=== PATIENT | female | born 1930 | race Caucasian/White ===

== ENCOUNTER 2016-08-30 09:36 | Inpatient (IN) | payer OTHER, BC ==
--- NOTE | ~2016-08-30 | DS ---
Discharge Summary [address] [place]. [address] NAME: ARIANA FELIX : [birth year] STATUS : DIS IN PAT#: [id number] AGE: 86 ADM/REG DATE : 08/30/16 MR#: [id number] REPORT SERV DATE: 09/11/16 DICTATED BY: SAAD MONROY DATE: 09/06/16 REPORT STATUS : Draft TRANSCRIBED BY: JC DATE: 09/06/16 ADMISSION DATE: 08/30/2016 DISCHARGE DATE: 09/06/2016 CONSULTATION: 1. Orthopedic Surgery, Dr. Dameon Dick. 2. Gastroenterology, [facility]. OPERATION DURING THIS ADMISSION: 1. [place]/intertrochanteric femur fracture. 2. Open reduction and internal fixation of right intertrochanteric femur fracture. DISCHARGE DIAGNOSES: 1. Right intertrochanteric hip fracture, status post open reduction and internal fixation by Dr. Dick. 2. Normocytic anemia. Etiology multifactorial including anemia of chronic disease, postop anemia status post 3 units of blood transfusion. Hemoglobin remained stable. No evidence of acute gastrointestinal bleed. 3. History of dementia. 4. Gastroesophageal reflux. 5. Hypertension. 6. History of diverticulosis. 7. History of vaginal cancer. 8. History of coronary artery disease with severe two-vessel disease, not amenable to surgical intervention as well as stent, on dual anti-platelet therapy. 9. Code status. DNR. HISTORY OF PRESENT ILLNESS: For detailed HPI, please make reference to Dr. Nelly Shukla' dictation on 08/30/2016. Brief, this is an 86-year-old female with medical history of hypertension, coronary artery disease with severe two-vessel disease, not amenable to surgery, on PCI, on dual anti-platelet therapy, who presented to the hospital after a ground level fall at home. In the ER, the patient was noted to have severe right hip pain. X-ray of the pelvis confirms the presence of intertrochanteric fracture of the right femur. The patient was admitted to the Hospitalist Service for further management of right hip fracture. HOSPITAL COURSE: 1. Right hip fracture, status post open reduction and internal fixation of intertrochanteric fracture by Dr. Dick. The patient underwent surgical repair without any significant complication. The patient continued to tolerate physical therapy during this admission, also pain control being administered as needed. The patient is currently stable for discharge from orthopedic standpoint to SNF. The patient will be discharged on warfarin sliding scale for DVT prophylaxis per Orthopedics postop management of hip fracture based on the protocol. 2. Anemia. On presentation, the patient's hemoglobin was 7.9, postop the patient's hemoglobin trended down to 7.2, the patient received a total of three units of blood Discharge [address] [place]. [address] NAME: ARIANA FELIX : [birth year] STATUS : DIS IN PAT#: [id number] AGE: 86 ADM/REG DATE : 08/30/16 MR#: [id number] REPORT SERV DATE: 09/11/16 DICTATED BY: SAAD MONROY DATE: 09/06/16 REPORT STATUS : Draft TRANSCRIBED BY: JC DATE: 09/06/16 transfusion during the course of this admission without any significant complication. During the workup of anemia, the patient was found to have heme-positive stool. The patient is well known to the GI service. No evidence of melena, hematochezia, hematemesis during this admission. Etiology of the patient's anemia likely multifactorial including anemia of chronic disease, postop anemia. The patient's hemoglobin has remained stable within the range of 9.2 to 9.8 postop. Discontinue the anemia. After extensive deliberation with the GI team, orthopedic team, and the Hospitalist team, it was noted that the patient would require dual anti-platelet therapy for severe two-vessels coronary artery disease as well as warfarin for DVT prophylaxis postop. Hence, it was noted that the patient has not had any significant GI bleed, and hemoglobin has remained stable on this three medications. Hence, it was decided that the patient can continue three medications and we will monitor. The will continue warfarin at a level 2 scale as well as close INR monitoring twice a week at the intermediate. The patient was subsequently discharged to intermediate with a stable H and H at 9.8. 3. History of coronary artery disease with known severe three-vessel disease, not amenable to surgical intervention as well as PCI. The patient had no evidence of chest pain. No acute T wave changes throughout the course of this admission. The patient was continued on all cardiac medications as well as dual anti-platelet therapy throughout this admission. The patient was advised to continue Coreg, aspirin, and Plavix at the time of discharge. DISCHARGE MEDICATIONS: 1. Aspirin 81 mg p.o. daily. 2. Plavix 75 mg p.o. daily. 3. Vitamin D 2000 units tab p.o. daily. 4. Colace 100 mg p.o. at bedtime. 5. Ferrous sulfate 325 mg p.o. daily. 6. Imdur 30 mg p.o. daily. 7. Lyrica 75 mg p.o. b.i.d. 8. Senna 8.6 mg p.o. b.i.d. 9. Dulcolax 10 mg p.o. daily. 10.Anusol p.r.n. for hemorrhoids. 11.Ativan 0.5 mg p.o. at bedtime p.r.n. 12.Oxycodone 7.5/325 mg p.o. p.r.n. as needed for pain. 13.Warfarin level 2 sliding scale. DISCHARGE CONDITION: Stable. DISCHARGE ACTIVITY: As tolerated. DISCHARGE DISPOSITION: SNF. Greater than 35 minutes was used to prepare this patient's discharge, reconcile medication, advise the patient on discharge plans and followup. Discharge Summary [address] [address] NAME: ARIANA FELIX : [birth year] STATUS : DIS IN [facility]#: [id number] AGE: 86 ADM/REG DATE : 08/30/16 MR#: [id number] REPORT SERV DATE: 09/11/16 DICTATED BY: SAAD MONROY DATE: 09/06/16 REPORT STATUS : Draft TRANSCRIBED BY: JC DATE: 09/06/16 DICTATED BY: MD TENISHA Goodrich/JC Saad Monroy MD / [id number] CC: MD Dameon Goodrich M.D. W. Timothy Ballard M.D. Nelly Reina Joels, M.D. [facility]
--- NOTE | ~2016-08-30 | OP ---
Record Of Operation [facility] [address] [place]. [address] NAME: ARIANA FELIX : [birth year] STATUS : DIS IN PAT#: [id number] AGE: 86 ADM/REG DATE : 08/30/16 MR#: [id number] REPORT SERV DATE: 09/19/16 DICTATED BY: NAHID ESPINAL DATE: 08/30/16 REPORT STATUS : Draft TRANSCRIBED BY: MODLevon DATE: 08/30/16 DATE OF PROCEDURE: 08/30/2016 PREOPERATIVE DIAGNOSIS: Right intertrochanteric femur fracture. POSTOPERATIVE DIAGNOSIS: Right intertrochanteric femur fracture. OPERATION: [place]/intertrochanteric femur fracture. SIDE: Right. SIZE: See chart. ANIMATION PRODUCER: ESTIMATED BLOOD LOSS: About 100 mL. TOURNIQUET TIME: None. SPECIMENS: None. ANESTHESIA: See chart. PROCEDURE: The patient was taken to the preoperative holding area. The patient was appropriately identified, marked and the consent form carefully checked. The patient was taken then to the operating room and anesthetic was induced per the anesthesiologist. The patient was carefully positioned, carefully padded, prepped and draped on the fracture table. Prior to the surgical prep a closed reduction was obtained by closed method using fluoroscopic guidance. The patient was then prepped and draped in the usual sterile fashion. Using fluoroscopic guidance, a straight lateral incision was made. This was followed by electrocautery through the fat, the IT band and the vastus, staying towards the posterior portion of the lateral vastus to decrease the amount of muscle tissue that was cut through. Meticulous hemostasis was obtained with electrocautery. Lateral femoral cortex was exposed further with periosteal elevator and appropriate retraction. A guide was then used to place a guidewire basically in the center of the head on AP and lateral x-ray views. This was followed by depth gauge and then triple reamer. Lag screw was placed over the guidewire. The sliding plate was then placed and impacted and checked to be sure it was down snug. The plate was held with a plate clamp distally and reduction again checked. The screw holes in the plate were then filled with screws in the standard fashion with drill depth gauge and then self-tapping screw placement. The screws were then tightened by hand. Record Of Operation [facility] [address] [place] [address] NAME: ARIANA FELIX : [birth year] STATUS : DIS IN PAT#: [id number] AGE: 86 ADM/REG DATE : 08/30/16 MR#: [id number] REPORT SERV DATE: 09/19/16 DICTATED BY: NAHID ESPINAL DATE: 08/30/16 REPORT STATUS : Draft TRANSCRIBED BY: MODLevon DATE: 08/30/16 All traction was released and the compression screw placed and tightened. Again x-ray views were checked to ascertain reduction and screw length. The wound was then irrigated and closed with sutures in the vastus. A medium drain was placed distally anteriorly between the vastus and the IT band, then sutured on the IT band, 2-0 subcutaneous, and maco in the skin. Wound dressed sterilely. The patient was awakened and carefully transferred to the bed and transferred to the recovery room without incident. COUNTS: Correct. WTB/PASTORAL Karthikeyan Espinal M.D. / [id number] CC: Sabra Armendariz M.D.
--- NOTE | ~2016-08-30 | HP ---
History And Physical [address] [place]. [address] NAME: ARIANA FEILX : [birth year] STATUS : ADM IN [facility]#: [id number] AGE: 86 ADM/REG DATE : 08/30/16 MR#: [id number] REPORT SERV DATE: 08/30/16 DICTATED BY: NAHID ESPINAL DATE: 08/30/16 REPORT STATUS : Draft TRANSCRIBED BY: MODLevon DATE: 08/30/16 DATE OF ADMISSION: 08/30/2016 CHIEF COMPLAINT: Right hip pain. HISTORY OF PRESENT ILLNESS: 86-year-old female, family well known to me. She fell trying to walk with a walker. She is pretty much bed-bound, just bed to chair, but fell trying to get up and walk today. She denies pain or injury elsewhere. No associated loss of consciousness, shortness of breath, or chest pain. She unfortunately had a recent admission earlier this year for coronary artery disease, for which a CABG was recommended, but they had declined. ALLERGIES: SEE CHART. MEDICATIONS: See chart. PAST MEDICAL HISTORY: Asthma, chemo and radiation with implantable seeds due to a cancer sometime in the past, coronary artery disease as mentioned above, history of dementia per chart, anemia, and peripheral neuropathy. SOCIAL HISTORY: She is , her is here with her, also here with a niece. No known cigarettes, alcohol, or illicit drug use. Stays in a care facility. FAMILY HISTORY: No known anesthetic complications. She has a sister, and longevity is in her family. REVIEW OF SYSTEMS: As mentioned above, her recent coronary artery disease. No other fevers, chills, nausea, vomiting, diarrhea, shortness of breath, or other illnesses of late. PHYSICAL EXAMINATION: GENERAL: She is alert, oriented and very pleasant, able to recall recent events. HEENT: Atraumatic and normocephalic. NECK: Supple. CHEST: Symmetric and nontender. LUNGS: Per AA evaluation. CV: Regular. ABDOMEN: Soft. No mass. EXTREMITIES: Both upper extremities and left lower extremity without acute trauma. Right lower extremity is short and externally rotated. Compartment supple. Somewhat thready pulses, but skin is intact. X-RAY: Displaced right intertrochanteric femur fracture, severely displaced. ASSESSMENT: Right intertrochanteric femur fracture and recent coronary artery disease. History And Physical [address] [place]. [address] NAME: ARIANA FELIX : [birth year] STATUS : ADM IN PAT#: [id number] AGE: 86 ADM/REG DATE : 08/30/16 MR#: [id number] REPORT SERV DATE: 08/30/16 DICTATED BY: NAHID ESPINAL DATE: 08/30/16 REPORT STATUS : Draft TRANSCRIBED BY: MODL DATE: 08/30/16 PLAN: I had a lengthy discussion with the patient, with her , with her niece, and with Dr. Shukla, the hospitalist, and the anesthesiologist regarding the risks, benefits, etc., and all were in agreement with proceeding with ORIF of right intertrochanteric femur fracture. WTB/MODL Karthikeyan Espinal M.D. / [id number] CC: Sabra Armendariz M.D.
--- NOTE | ~2016-08-30 | IDS ---
Interim Discharge Summary [facility] [address] [place]. [address] NAME: ARIANA FELIX : [birth year] STATUS : ADM IN [facility]#: [id number] AGE: 86 ADM/REG DATE : 08/30/16 MR#: [id number] REPORT SERV DATE: 09/03/16 DICTATED BY: JR. VILLELA WILLIAM JOHN DATE: 09/03/16 REPORT STATUS : Draft TRANSCRIBED BY: JC DATE: 09/03/16 ADMISSION DATE: 08/30/2016 DISCHARGE DATE: WORKING DIAGNOSES: 1. Right intertrochanteric hip fracture status post open reduction and internal fixation by Dr. Dick. 2. Anemia of chronic disease. 3. History of vaginal cancer. 4. 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 5. DNAR status. OPERATIONS, PROCEDURES, AND TREATMENTS: Include: 1. Open reduction and internal fixation of right intertrochanteric femur fracture on 08/30/[address] Dick. 2. Chest x-ray done 08/30/2016, which showed no acute process. 3. Hip x-ray done 08/30/2016, which showed acute comminuted intertrochanteric fracture of the right femur. CURRENT MEDICATIONS: Please see list on the progress note. HOSPITAL COURSE: The patient was an 86-year-old female, custodial resident who was trying to walk using a walker, lost her balance, fell backwards and was found to have a right intertrochanteric hip fracture. For initial exam and laboratory, please see Dr. Shukla' dictated history and physical. The patient was admitted to the hospital for right inter-trochanteric hip fracture. She was seen in consultation by Dr. Dick and underwent open reduction and internal fixation. There were no significant events in this regard. As to her anemia, the patient did require a total of 3 units of packed red blood cells. She was transfused with two units packed red blood cells on 08/30/2016. Since that time, her hemoglobin had been in the 8.6 to 9.2 range. On 09/02/2016, she had a spurious reading of 7.4. She got one additional unit, however, followup hemoglobin was 10.1. This likely represents a laboratory error for the 7.4, reading. We will recheck a hemoglobin in the morning. The patient is being evaluated for rehabilitation but has not yet improved. When she is improved, the patient be discharged to rehabilitation. For today's lab and exam findings, please see the daily progress note. My partner will assume care in the morning. WJF/JC Dameon Nice Interim Discharge Summary [address] [address] NAME: ARIANA FELIX : [birth year] STATUS : ADM IN PAT#: [id number] AGE: 86 ADM/REG DATE : 08/30/16 MR#: [id number] REPORT SERV DATE: 09/03/16 DICTATED BY: JR. VILLELA WILLIAM JOHN DATE: 09/03/16 REPORT STATUS : Draft TRANSCRIBED BY: MODL DATE: 09/03/16 Jr Villela MD / [id number] CC: Dameon Villela Jr, MD William L. Horton, M.D.
--- NOTE | ~2016-08-30 | CN ---
Consultation Report [facility] [address] [place]. [address] NAME: ARIANA FELIX : [birth year] STATUS : ADM IN PAT#: [id number] AGE: 86 ADM/REG DATE : 08/30/16 MR#: [id number] REPORT SERV DATE: 09/06/16 DICTATED BY: JACLYN GILL DATE: 09/06/16 REPORT STATUS : Draft TRANSCRIBED BY: MODL DATE: 09/06/16 GI CONSULTATION DATE OF CONSULTATION: 09/06/2016 REASON FOR CONSULTATION: Evaluation and management of anemia with Hemoccult-positive stools. HISTORY OF PRESENT ILLNESS: Ms Felix is an 86-year-old female patient, who has been seen by Dr. Vishal Nielsen in the past, who presented to [facility] on 08/30/2016 with a chief complaint of a fall. She had fell on 08/30/2016 at the [facility] while trying to ambulate with a walker stating that she felt like she just lost her balance, and fell backwards. Pain in the right hip was immediate. She was brought into the hospital, was found to have an intertrochanteric fracture of the right hip for which she underwent ORIF of the right femur with Dr. Dick on 08/30/2016. Since that time, she was being evaluated by Rehab to which she was to be discharged today. She has a noted history of anemia when she was admitted on 08/30/2016. She had a hemoglobin is 7.9 during her hospitalization. She has required 3 units of packed red blood cells. She has a history of coronary artery disease, not amenable to CABG, and she has been on a regimen of Plavix and aspirin, and she has had Coumadin added to her regimen since her hip surgery. There was concern for occult GI bleeding. She had stools checked and returned positive; however, there has been no signs or symptoms of hematochezia or melena. Her stools are described as a dark color; however, she is on iron supplementation. She denies any nausea, vomiting, or abdominal pain. I have had a long discussion with her regarding endoscopic evaluation for GI to be able to perform any endoscopy on the patient. She would need to have her Plavix held for a total of five days as well as her Coumadin held with her INR to a level of 1.5 prior to any endoscopy. She herself states that she does not want to have any endoscopy performed. Her last procedure with Dr. Nielsen was in 2010 when he performed a flexible sigmoidoscopy. He found diffuse small angioectasias in the rectum that were nonbleeding and treated with thermal therapy. Her last full colonoscopy was in 2006 with sigmoid colon, descending colon, and diverticulosis as well as moderate nonbleeding internal hemorrhoids. She had an EGD in 2006 also showing normal duodenum and pylorus, nonerosive gastritis in the antrum, she had hiatal hernia and normal esophagus. PAST MEDICAL HISTORY: Positive for coronary artery disease, 2-vessel medical management only, hypertension, vaginal cancer status post radiation therapy, peripheral neuropathy, dementia, osteoarthritis, UTI, chronic anemia, chronic pain syndrome, diverticulosis, hemorrhoids, and colonic AVM. FAMILY HISTORY: Negative from a GI standpoint. SOCIAL HISTORY: Negative for alcohol, tobacco, or illicits. Prior to admission, was living in the [facility]. ALLERGIES: PENICILLIN, SULFA, AND CODEINE. Consultation Report [address] [place]. [address] NAME: ARIANA FELIX : [birth year] STATUS : ADM IN LOCATED WITHIN [facility]#: [id number] AGE: 86 ADM/REG DATE : 08/30/16 MR#: [id number] REPORT SERV DATE: 09/06/16 DICTATED BY: JACLYN GILL DATE: 09/06/16 REPORT STATUS : Draft TRANSCRIBED BY: JC DATE: 09/06/16 HOME MEDICATIONS: Aspirin, Plavix, Colace, Pepcid, ferrous sulfate, Imdur, Lyrica, oxycodone, Senna, multivitamin, Dyazide, vitamin D3, Lorazepam, and Milk of Magnesia. REVIEW OF SYSTEMS: A 10-point review of systems was obtained with pertinent positives being addressed in the history of present illness. PHYSICAL EXAMINATION: VITAL SIGNS: Temperature is 97. Pulse 68, respirations 18, and blood pressure 113/58. NEUROLOGIC: Reveals an elderly female resting in bed. She does awaken to name. She is oriented x3. She knows who she is, she knows she is at [facility]. She knows the year is 2016. GENERAL: She is cooperative. She is in no acute distress. HEAD, EARS, EYES, NOSE, AND THROAT: Anicteric. Pupils are equal, round, and reactive to light and accommodation. Normocephalic and atraumatic. NECK: No JVD. No palpable nodes. LUNGS: Diminished in the bases. Clear in the upper lobes. Normal respiratory effort exhibited. CARDIOVASCULAR SYSTEM: Regular rate and rhythm. ABDOMEN: Soft, nontender, and nondistended. Active bowel sounds in all four quadrants. No organomegaly appreciated. EXTREMITIES: No edema. She has a right hip and thigh dressing clean, dry, and intact. SKIN: Warm, dry, and intact. PERTINENT LABORATORY DATA: Sodium 137, potassium is 4.1, BUN is 25, and creatinine 1.03. White blood cell count 7.9, hemoglobin 9.8, hematocrit 30.6, and platelet count of 309. INR of 2.1. Last blood transfusion was given on 09/02/2016. ASSESSMENT AND PLAN: 1. Anemia, acute on chronic. She has had 3 units of packed red blood cells since admission. I feel this anemia is multifactorial. 2. Status post fall with right hip fracture status post ORIF, presently on Coumadin with an INR of 2.1. 3. Hemoccult-positive stools without any overt signs of bleeding. 4. Coronary artery disease, 2-vessel with medical management therapy only, Plavix and aspirin. 5. History of vaginal cancer status post radiation. 6. History of diverticulosis. 7. History of colonic arteriovenous malformation. PLAN: At present, with no overt signs or symptoms of bleeding. Hemoglobin is stable after 3 units which transfusion could have been needed secondary to surgical intervention. Admission hemoglobin of 7.9. I have discussed with the patient as no family is present EGD and colonoscopy. She does not want to proceed secondary to recent surgery. No active Consultation Report [address] [place]. [address] NAME: ARIANA FELIX : [birth year] STATUS : ADM IN LOCATED WITHIN [facility]#: [id number] AGE: 86 ADM/REG DATE : 08/30/16 MR#: [id number] REPORT SERV DATE: 09/06/16 DICTATED BY: JACLYN GILL DATE: 09/06/16 REPORT STATUS : Draft TRANSCRIBED BY: MODL DATE: 09/06/16 bleeding. If it is felt that EGD and colonoscopy are needed, the patient's Coumadin needs to be held until her INR is less than 1.5. Her Plavix will need to be held for a total of five days. If not amenable to being held, we would recommend the patient to be transferred to Rehab as previously planned. We will add Anusol for history of hemorrhoids as well as I would recommend continue her PPI twice a day. We will follow. KEYA/JC JULIA Mccain / [id number] CC: MD Dameon Goodrich M.D.
--- NOTE | ~2016-08-30 | HP ---
History And Physical [id number] [place]. [address] NAME: ARIANA FELIX : [birth year] STATUS : ADM IN [facility]#: [id number] AGE: 86 ADM/REG DATE : 08/30/16 MR#: [id number] REPORT SERV DATE: 08/30/16 DICTATED BY: CRIS SHUKLA DATE: 08/30/16 REPORT STATUS : Draft TRANSCRIBED BY: MODLevon DATE: 08/30/16 DATE OF ADMISSION: 08/30/2016 CHIEF COMPLAINT: Fall. HISTORY OF PRESENT ILLNESS: The patient is an 86-year-old white female, who is currently residing in a half-way. She fell today while trying to use a walker. She states she just lost her balance and fell backwards. She suddenly had pain to the right hip and was transferred to [facility], where she was found to have an intertrochanteric fracture of the right hip. She has had a fairly complex recent past medical history. She is currently residing in a half-way. She has become more frail and has had a decline. She no longer really ambulates very much. She needs maximal assistance. She frequently forgets to her call button at the half-way for assistance. She was in the hospital at [facility] in May with chest pain at that time. She underwent stress testing, which was positive. She then underwent a cardiac cath and she had severe two-vessel coronary artery disease. She was recommended to meet with CT Surgery for consideration of a CABG. After meeting with the CT surgeon and discussing things with the reactor kettle operator, they decided given her frail state and her immobility and decline over the last several months along with some dementia and her advanced age that it would not be recommended that she proceed with such a big surgery, instead they wanted to just pursue medical therapy. They made her DNR and they are more interested in comfort and palliation. She denies having any recent chest pain or shortness of breath. She has not had any recent fevers, and really has no other complaints today other than right hip pain. PAST MEDICAL HISTORY: 1. CAD, two-vessel, deemed only appropriate for medical therapy. 2. Hypertension. 3. Vaginal cancer. 4. Peripheral neuropathy. 5. Osteoarthritis. 6. Dementia. 7. Urinary tract infections. 8. Anemia. 9. Chronic pain. SOCIAL HISTORY: Nondrinker, nonsmoker. She lives in a half-way. Her is living. She attempts to ambulate with a walker, but she really ambulates very little. FAMILY HISTORY: Her parents lived to be very old and they of old age, but there is no history of premature coronary disease. HOME MEDICATIONS: Reviewed and attached. REVIEW OF SYSTEMS: Full 10-point review of systems obtained from the family, but not the patient as she was unable. She had pain medication. History And Physical [address] [address] NAME: ARIANA FELIX : [birth year] STATUS : ADM IN PAT#: [id number] AGE: 86 ADM/REG DATE : 08/30/16 MR#: [id number] REPORT SERV DATE: 08/30/16 DICTATED BY: CRIS SHUKLA DATE: 08/30/16 REPORT STATUS : Draft TRANSCRIBED BY: JC DATE: 08/30/16 PHYSICAL EXAMINATION: VITAL SIGNS: BP 111/29, temperature 97.6, pulse 69, respiratory rate 13, sats are 100%. GENERAL: Very frail appearing white female. HEENT: Normocephalic, atraumatic. Throat is clear. NECK: Supple. HEART: Regular rate and rhythm. LUNGS: Grossly clear anteriorly. ABDOMEN: Soft, nontender, nondistended. Normoactive bowel sounds are noted. EXTREMITIES: Warm and dry. She has no peripheral edema. 2+ pulses in the feet. I was unable to roll her over as she has tremendous pain in her right hip. LABORATORY AND X-RAY: CBC shows a hemoglobin and hematocrit of 7.9 and 24, white count 10.5, platelets 283. Coags are normal. Chemistry panel: Sodium 144, potassium 3.9, chloride 109, CO2 26, BUN and creatinine 24 and 1.28, glucose is 95. Troponin 0.02. Mag 1.7. Urinalysis is unrevealing. Chest x-ray shows no acute process. Pelvis film shows acute intertrochanteric fracture of the right femur. EKG shows sinus rhythm without any acute ST- T wave changes. ASSESSMENT/PLAN: 1. Right hip fracture per Dr. Dick. We will do open reduction and internal fixation mainly for palliation as I suspect with this type of fracture, she will be unable to roll in the bed or even sit up without significant pain. The family understands the risks since she has diagnosed two-vessel disease that was not intervened on and she was recommend to have CABG. 2. Coronary artery disease. Family desires no aggressive care for her coronary artery disease. We will continue her home medications. We will monitor her on tele. She is currently a DNR. We will proceed with surgery as without she will likely have no quality of life. 3. History of vaginal cancer. 4. 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 5. Dementia. 6. Anemia. She has had some component of chronic anemia, but this seems a bit worse than usual. We will Hemoccult her stools. She is already on her second unit of the blood now. Would like to tank her up before she goes to the OR given her coronary artery disease. Her last hemoglobin was 8.8 on 09/18/2014. We will do two units now, then we will repeat her hemoglobin and transfuse additionally if she is less than 8. We will Hemoccult her stool and go from there. 7. Deep venous thrombosis prophylaxis, subcu Lovenox. 8. Code status. The patient is full DNR. 9. Disposition pending above. DONALD/JC Cris Huang History And Physical [address] [address] NAME: ARIANA FELIX : [birth year] STATUS : ADM IN [facility]#: [id number] AGE: 86 ADM/REG DATE : 08/30/16 MR#: [id number] REPORT SERV DATE: 08/30/16 DICTATED BY: CRIS SHUKLA DATE: 08/30/16 REPORT STATUS : Draft TRANSCRIBED BY: JC DATE: 08/30/16 Sabra Shukla / [id number] CC: Sabra Armendariz M.D.
[~2016-08-30 09:36] MED LIST: CEFT5 PO; LYRICA150 MG PO; PERCOCET1 TA4 PO; TRAZODONE150 MG PO
[2016-08-30 09:46] LABS: BASOPHILS 0.2 %; BASOPHILS ABSOLUTE 0.02 10/3/uL (0.0-0.16); EOSINOPHILS ABSOLUTE 0.21 10/3/uL (0.0-0.53); ER CBC TAT 0 Hrs 04 MinsNP; HEMATOCRIT 24.3 % (36.0-48.0); HEMOGLOBIN 7.9 g/dL (12.0-16.0); IMMATURE GRANULOCYTES 0.3 %; IMMATURE GRANULOCYTES ABSOLUTE 0.03 10/3/uL (0.0-0.11); LYMPHOCYTES 9.7 %; LYMPHOCYTES ABSOLUTE 1.01 10/3/uL (0.67-4.30); MANUAL DIFF NO %; MEAN CORPUS HGB CONC 32.5 g/dL (32.0-36.0); MEAN CORPUSCULAR VOLUME 86.2 fL (80-100); MEAN PLATELET VOLUME 8.9 fL (9.2-13.0); MONOCYTES 4.6 %; MONOCYTES ABSOLUTE 0.48 10/3/uL (0.21-1.20); NEUTROPHILS 83.2 %; PLATELET COUNT 283 10/3/uL (150-400); RBC DISTRIBUTION WIDTH 15.1 % (12.0-16.0); RED CELL COUNT 2.82 10/6/uL (4.0-5.6); WHITE BLOOD CELLS 10.5 10/3/uL (4.5-10.5)
[2016-08-30 09:56] LABS: INTERNATIONAL NORMAL RATI 1.1 UNITS (-); PARTIAL THROMBO TIME 39.4 SEC (22.5-37.2); PROTIME (NOT ORD) 14.3 SEC (12.0-14.5)
[2016-08-30 10:01] LABS: CHEST PAIN PROFILE TAT 0 Hrs 19 Mins; CHLORIDE, SERUM 109 MMOL/L (96-112); CO2 (CARBON DIOXIDE) 26 MMOL/L (24-34); CREATININE 1.28 MG/DL (0.55-1.02); GFR AFRICAN AMERICAN 43 ML/MIN (>=60); GFR NON AFRICAN AMERICAN 37 ML/MIN (>=60); GLUCOSE, SERUM 95 MG/DL (60-99); POTASSIUM, SERUM 3.9 MMOL/L (3.5-5.3); SODIUM, SERUM 144 MMOL/L (135-148); TROPONIN I 0.02 NG/ML (<0.05)
[2016-08-30 10:02] LABS: BUN (BLOOD UREA NITROGEN) 24 MG/DL (6-23)
[2016-08-30] MEDS ORDERED: *DENIES (10:10)
[2016-08-30 10:12] LABS: ASCORBIC ACID (UR NOT ORDER) NEG (NEG); BILIRUBIN, URINE NEGATIVE (NEG); ER URINALYSIS TAT 0 Hrs 16 Mins; KETONE, URINE NEGATIVE (NEG); LEUKOCYTE ESTERASE(NOT OR NEG (NEG); NITRITE (URINE) NEG (NEG); WBC (NOT ORDERED) (RFLEX) < 1 (0-5)
[2016-08-30 20:22] LABS: BASOPHILS 0.1 %; BASOPHILS ABSOLUTE 0.01 10/3/uL (0.0-0.16); EOSINOPHILS 0.4 %; EOSINOPHILS ABSOLUTE 0.05 10/3/uL (0.0-0.53); IMMATURE GRANULOCYTES 0.3 %; IMMATURE GRANULOCYTES ABSOLUTE 0.04 10/3/uL (0.0-0.11); LYMPHOCYTES 10.9 %; LYMPHOCYTES ABSOLUTE 1.28 10/3/uL (0.67-4.30); MEAN CORPUS HGB CONC 32.5 g/dL (32.0-36.0); MEAN CORPUSCULAR HEMOGLOB 27.5 pg (26.0-34.0); MEAN CORPUSCULAR VOLUME 84.7 fL (80-100); MEAN PLATELET VOLUME 9.3 fL (9.2-13.0); MONOCYTES ABSOLUTE 0.94 10/3/uL (0.21-1.20); NEUTROPHILS 80.3 %; NEUTROPHILS ABSOLUTE 9.45 10/3/uL (2.02-8.40); PLATELET COUNT 222 10/3/uL (150-400); RBC DISTRIBUTION WIDTH 15.6 % (12.0-16.0); WHITE BLOOD CELLS 11.8 10/3/uL (4.5-10.5)
[2016-08-30 20:26] LABS: HEMATOCRIT 32.6 % (36.0-48.0); HEMOGLOBIN 10.6 g/dL (12.0-16.0); MANUAL DIFF NO %; RED CELL COUNT 3.85 10/6/uL (4.0-5.6)
[2016-08-31] MEDS ORDERED: HALF81 PO (04:04)
[2016-08-31] MEDS ORDERED: PLAVIX PO (04:05)
[2016-08-31] MEDS ORDERED: DSS PO (04:06)
[2016-08-31] MEDS ORDERED: PEP20 PO (04:06)
[2016-08-31] MEDS ORDERED: FERROUS SULF325 M1 PO (04:07)
[2016-08-31] MEDS ORDERED: LYRICA75 PO (04:08)
[2016-08-31] MEDS ORDERED: IMDUR30 PO (04:08)
[2016-08-31] MEDS ORDERED: PERCOCET 7.5/321 TAB PO ×2 (04:10→04:21)
[2016-08-31] MEDS ORDERED: SENTAB PO (04:10)
[2016-08-31] MEDS ORDERED: MULTIPLE VIT PO (04:11)
[2016-08-31] MEDS ORDERED: MAX25 PO (04:12)
[2016-08-31] MEDS ORDERED: VITAMIN D2000 UNIT PO (04:12)
[2016-08-31] MEDS ORDERED: BISR PR (04:13)
[2016-08-31] MEDS ORDERED: HYDROCORTISONE30 G1 PR (04:15)
[2016-08-31] MEDS ORDERED: ATV.5 PO (04:16)
[2016-08-31] MEDS ORDERED: MOMUD PO (04:17)
[2016-08-31] MEDS ORDERED: NITROSTAT0.4 MG SL (04:20)
[2016-08-31 08:01] LABS: INTERNATIONAL NORMAL RATI 1.4 UNITS (-)
[2016-08-31 08:02] LABS: PROTIME (NOT ORD) 17.2 SEC (12.0-14.5)
[2016-08-31 08:05] LABS: BASOPHILS 0.2 %; BASOPHILS ABSOLUTE 0.02 10/3/uL (0.0-0.16); EOSINOPHILS 3.7 %; EOSINOPHILS ABSOLUTE 0.32 10/3/uL (0.0-0.53); HEMOGLOBIN 8.6 g/dL (12.0-16.0); IMMATURE GRANULOCYTES 0.2 %; IMMATURE GRANULOCYTES ABSOLUTE 0.02 10/3/uL (0.0-0.11); LYMPHOCYTES ABSOLUTE 1.12 10/3/uL (0.67-4.30); MEAN CORPUS HGB CONC 32.8 g/dL (32.0-36.0); MEAN CORPUSCULAR HEMOGLOB 27.5 pg (26.0-34.0); MEAN CORPUSCULAR VOLUME 83.7 fL (80-100); MEAN PLATELET VOLUME 9.4 fL (9.2-13.0); MONOCYTES 8.7 %; MONOCYTES ABSOLUTE 0.75 10/3/uL (0.21-1.20); NEUTROPHILS 74.2 %; NEUTROPHILS ABSOLUTE 6.39 10/3/uL (2.02-8.40); PLATELET COUNT 179 10/3/uL (150-400); RBC DISTRIBUTION WIDTH 15.9 % (12.0-16.0); RED CELL COUNT 3.13 10/6/uL (4.0-5.6); WHITE BLOOD CELLS 8.6 10/3/uL (4.5-10.5)
[2016-08-31 08:06] LABS: HEMATOCRIT 26.2 % (36.0-48.0); MANUAL DIFF NO %
[2016-08-31 08:07] LABS: BUN (BLOOD UREA NITROGEN) 23 MG/DL (6-23); CHLORIDE, SERUM 107 MMOL/L (96-112); CO2 (CARBON DIOXIDE) 26 MMOL/L (24-34); CREATININE 1.37 MG/DL (0.55-1.02); GFR AFRICAN AMERICAN 40 ML/MIN (>=60); GFR NON AFRICAN AMERICAN 34 ML/MIN (>=60); GLUCOSE, SERUM 97 MG/DL (60-99); POTASSIUM, SERUM 3.9 MMOL/L (3.5-5.3); SODIUM, SERUM 139 MMOL/L (135-148)
[2016-08-31 08:08] LABS: CALCIUM, SERUM 7.9 MG/DL (8.5-10.4)
[2016-09-01 08:15] LABS: BASOPHILS 0.1 %; BASOPHILS ABSOLUTE 0.01 10/3/uL (0.0-0.16); EOSINOPHILS 4.1 %; EOSINOPHILS ABSOLUTE 0.42 10/3/uL (0.0-0.53); HEMATOCRIT 27.4 % (36.0-48.0); HEMOGLOBIN 9.2 g/dL (12.0-16.0); IMMATURE GRANULOCYTES 0.3 %; IMMATURE GRANULOCYTES ABSOLUTE 0.03 10/3/uL (0.0-0.11); LYMPHOCYTES 11.9 %; LYMPHOCYTES ABSOLUTE 1.22 10/3/uL (0.67-4.30); MEAN CORPUS HGB CONC 33.6 g/dL (32.0-36.0); MEAN CORPUSCULAR HEMOGLOB 28.4 pg (26.0-34.0); MEAN CORPUSCULAR VOLUME 84.6 fL (80-100); MEAN PLATELET VOLUME 9.2 fL (9.2-13.0); MONOCYTES ABSOLUTE 0.72 10/3/uL (0.21-1.20); NEUTROPHILS 76.6 %; NEUTROPHILS ABSOLUTE 7.84 10/3/uL (2.02-8.40); PLATELET COUNT 206 10/3/uL (150-400); RBC DISTRIBUTION WIDTH 15.2 % (12.0-16.0); RED CELL COUNT 3.24 10/6/uL (4.0-5.6); WHITE BLOOD CELLS 10.2 10/3/uL (4.5-10.5)
[2016-09-01 08:17] LABS: MANUAL DIFF NO %
[2016-09-01 08:22] LABS: INTERNATIONAL NORMAL RATI 1.3 UNITS (-); PROTIME (NOT ORD) 16.2 SEC (12.0-14.5)
[2016-09-01 08:30] LABS: A/G RATIO 0.8 (0.7-1.9); ALBUMIN 2.5 G/DL (3.5-5.0); BUN (BLOOD UREA NITROGEN) 23 MG/DL (6-23); CALCIUM, SERUM 8.6 MG/DL (8.5-10.4); CHLORIDE, SERUM 101 MMOL/L (96-112); CO2 (CARBON DIOXIDE) 30 MMOL/L (24-34); CREATININE 1.23 MG/DL (0.55-1.02); GFR AFRICAN AMERICAN 45 ML/MIN (>=60); GFR NON AFRICAN AMERICAN 39 ML/MIN (>=60); GLOBULIN 3.1 G/DL (2.5-4.1); GLUCOSE, SERUM 108 MG/DL (60-99); POTASSIUM, SERUM 3.7 MMOL/L (3.5-5.3); SGOT(AST) 31 U/L (5-40); SGPT(ALT) 8 U/L (5-65); SODIUM, SERUM 135 MMOL/L (135-148); TOTAL BILIRUBIN 0.7 MG/DL (0-1.2); TOTAL PROTEIN 5.6 G/DL (6.0-8.5)
[2016-09-01 08:33] LABS: ALKALINE PHOSPHATASE 76 U/L (45-117)
[2016-09-02 06:30] LABS: INTERNATIONAL NORMAL RATI 1.5 UNITS (-); PROTIME (NOT ORD) 17.5 SEC (12.0-14.5)
[2016-09-02 06:55] LABS: HEMOGLOBIN 7.4 g/dL (12.0-16.0)
[2016-09-02 06:56] LABS: HEMATOCRIT 23.6 % (36.0-48.0)
[2016-09-03 06:36] LABS: INTERNATIONAL NORMAL RATI 1.7 UNITS (-); PROTIME (NOT ORD) 19.4 SEC (12.0-14.5)
[2016-09-03 06:45] LABS: BUN (BLOOD UREA NITROGEN) 24 MG/DL (6-23); CALCIUM, SERUM 8.9 MG/DL (8.5-10.4); CHLORIDE, SERUM 104 MMOL/L (96-112); CO2 (CARBON DIOXIDE) 28 MMOL/L (24-34); CREATININE 1.05 MG/DL (0.55-1.02); GFR AFRICAN AMERICAN 55 ML/MIN (>=60); GFR NON AFRICAN AMERICAN 47 ML/MIN (>=60); GLUCOSE, SERUM 103 MG/DL (60-99); SODIUM, SERUM 136 MMOL/L (135-148)
[2016-09-03 06:56] LABS: BASOPHILS 0.2 %; BASOPHILS ABSOLUTE 0.02 10/3/uL (0.0-0.16); EOSINOPHILS 0 %; IMMATURE GRANULOCYTES 0.2 %; IMMATURE GRANULOCYTES ABSOLUTE 0.02 10/3/uL (0.0-0.11); LYMPHOCYTES 14.4 %; LYMPHOCYTES ABSOLUTE 1.19 10/3/uL (0.67-4.30); MEAN CORPUS HGB CONC 33.1 g/dL (32.0-36.0); MEAN CORPUSCULAR HEMOGLOB 28.1 pg (26.0-34.0); MEAN CORPUSCULAR VOLUME 84.7 fL (80-100); MEAN PLATELET VOLUME 9.7 fL (9.2-13.0); MONOCYTES 7.5 %; MONOCYTES ABSOLUTE 0.62 10/3/uL (0.21-1.20); NEUTROPHILS 77.7 %; NEUTROPHILS ABSOLUTE 6.39 10/3/uL (2.02-8.40); PLATELET COUNT 235 10/3/uL (150-400); RBC DISTRIBUTION WIDTH 15.2 % (12.0-16.0); WHITE BLOOD CELLS 8.2 10/3/uL (4.5-10.5)
[2016-09-03 06:58] LABS: HEMATOCRIT 30.5 % (36.0-48.0); HEMOGLOBIN 10.1 g/dL (12.0-16.0); MANUAL DIFF NO %
[2016-09-04 06:42] LABS: INTERNATIONAL NORMAL RATI 1.9 UNITS (-); PROTIME (NOT ORD) 21.4 SEC (12.0-14.5)
[2016-09-04 17:37] LABS: HEMOGLOBIN 10.4 g/dL (12.0-16.0)
[2016-09-05 06:24] LABS: BASOPHILS 0.1 %; BASOPHILS ABSOLUTE 0.01 10/3/uL (0.0-0.16); EOSINOPHILS 5.7 %; EOSINOPHILS ABSOLUTE 0.39 10/3/uL (0.0-0.53); HEMOGLOBIN 9.2 g/dL (12.0-16.0); IMMATURE GRANULOCYTES 0.4 %; IMMATURE GRANULOCYTES ABSOLUTE 0.03 10/3/uL (0.0-0.11); LYMPHOCYTES 12.7 %; LYMPHOCYTES ABSOLUTE 0.87 10/3/uL (0.67-4.30); MEAN CORPUS HGB CONC 32.4 g/dL (32.0-36.0); MEAN CORPUSCULAR HEMOGLOB 28.4 pg (26.0-34.0); MEAN PLATELET VOLUME 9.1 fL (9.2-13.0); MONOCYTES 7.6 %; MONOCYTES ABSOLUTE 0.52 10/3/uL (0.21-1.20); NEUTROPHILS 73.5 %; NEUTROPHILS ABSOLUTE 5.05 10/3/uL (2.02-8.40); PLATELET COUNT 275 10/3/uL (150-400); RBC DISTRIBUTION WIDTH 15.4 % (12.0-16.0); RED CELL COUNT 3.24 10/6/uL (4.0-5.6); WHITE BLOOD CELLS 6.9 10/3/uL (4.5-10.5)
[2016-09-05 06:25] LABS: HEMATOCRIT 28.4 % (36.0-48.0); MANUAL DIFF NO %; MEAN CORPUSCULAR VOLUME 87.7 fL (80-100)
[2016-09-05 06:27] LABS: PROTIME (NOT ORD) 22.3 SEC (12.0-14.5)
[2016-09-05 06:43] LABS: BUN (BLOOD UREA NITROGEN) 25 MG/DL (6-23); CALCIUM, SERUM 8.7 MG/DL (8.5-10.4); CHLORIDE, SERUM 105 MMOL/L (96-112); CO2 (CARBON DIOXIDE) 28 MMOL/L (24-34); CREATININE 1.03 MG/DL (0.55-1.02); GFR AFRICAN AMERICAN 56 ML/MIN (>=60); GFR NON AFRICAN AMERICAN 48 ML/MIN (>=60); PHOSPHORUS, SERUM 1.6 MG/DL (2.5-4.5); POTASSIUM, SERUM 4.1 MMOL/L (3.5-5.3); SODIUM, SERUM 137 MMOL/L (135-148)
[2016-09-05 06:49] LABS: GLUCOSE, SERUM 134 MG/DL (60-99)
[2016-09-05 13:39] LABS: HEMATOCRIT 29.6 % (36.0-48.0); HEMOGLOBIN 9.5 g/dL (12.0-16.0)
[2016-09-06 07:17] LABS: BASOPHILS 0.4 %; BASOPHILS ABSOLUTE 0.03 10/3/uL (0.0-0.16); EOSINOPHILS 6.6 %; EOSINOPHILS ABSOLUTE 0.52 10/3/uL (0.0-0.53); HEMATOCRIT 30.6 % (36.0-48.0); HEMOGLOBIN 9.8 g/dL (12.0-16.0); IMMATURE GRANULOCYTES 0.4 %; IMMATURE GRANULOCYTES ABSOLUTE 0.03 10/3/uL (0.0-0.11); LYMPHOCYTES 20.7 %; LYMPHOCYTES ABSOLUTE 1.64 10/3/uL (0.67-4.30); MEAN CORPUSCULAR HEMOGLOB 28.4 pg (26.0-34.0); MEAN CORPUSCULAR VOLUME 88.7 fL (80-100); MEAN PLATELET VOLUME 8.9 fL (9.2-13.0); MONOCYTES 8.1 %; MONOCYTES ABSOLUTE 0.64 10/3/uL (0.21-1.20); NEUTROPHILS 63.8 %; NEUTROPHILS ABSOLUTE 5.07 10/3/uL (2.02-8.40); PLATELET COUNT 309 10/3/uL (150-400); RBC DISTRIBUTION WIDTH 16.1 % (12.0-16.0); RED CELL COUNT 3.45 10/6/uL (4.0-5.6); WHITE BLOOD CELLS 7.9 10/3/uL (4.5-10.5)
[2016-09-06 07:19] LABS: MANUAL DIFF NO %
[2016-09-06 07:23] LABS: INTERNATIONAL NORMAL RATI 2.1 UNITS (-); PROTIME (NOT ORD) 23.6 SEC (12.0-14.5)
== END 2016-09-06 17:06 | DRG 481 ==
LOC: ER 09:36 → 1SO 11:31
PROVIDERS: Emergency Medicine; Hospitalist; Internal Medicine; Nurse Practitioner Acute Care; Specialist
PROC: 30233N1 Transfusion of Nonautologous Red Blood Cells into Peripheral Vein, Percutaneous Approach (ICD-10-PCS; 2016-08-30)
PROC: 0QSB04Z Reposition Right Lower Femur with Internal Fixation Device, Open Approach (ICD-10-PCS; principal; 2016-08-30 14:15)
DX: S72.141A Displaced intertrochanteric fracture of right femur, initial encounter for closed fracture (principal); D62 Acute posthemorrhagic anemia; G62.9 Polyneuropathy, unspecified; F03.90 Unspecified dementia, unspecified severity, without behavioral disturbance, psychotic disturbance, mood disturbance, and anxiety; Z66 Do not resuscitate; D63.8 Anemia in other chronic diseases classified elsewhere; R62.7 Adult failure to thrive; I25.10 Atherosclerotic heart disease of native coronary artery without angina pectoris; K21.9 Gastro-esophageal reflux disease without esophagitis; K57.30 Diverticulosis of large intestine without perforation or abscess without bleeding; G89.4 Chronic pain syndrome; J45.909 Unspecified asthma, uncomplicated; W18.30XA Fall on same level, unspecified, initial encounter; Z79.82 Long term (current) use of aspirin; Z79.01 Long term (current) use of anticoagulants; Z79.891 Long term (current) use of opiate analgesic; Z79.899 Other long term (current) drug therapy; I25.2 Old myocardial infarction; Z74.01 Bed confinement status; Z95.1 Presence of aortocoronary bypass graft; Z85.42 Personal history of malignant neoplasm of other parts of uterus; Z87.440 Personal history of urinary (tract) infections; Z88.0 Allergy status to penicillin; Z88.5 Allergy status to narcotic agent; Z88.2 Allergy status to sulfonamides
CPT/HCPCS: 36415; 36430; 71010; 73502-RT; 76000; 80048; 80053; 81001; 82272; 83735; 84100; 84484; 85014; 85018; 85025; 85610; 85730; 86850; 86900; 86901; 86920; 93005; 96374; 97110-GO; 97110-GP; 97163-GP; 97166-GO; 97530-GO; 97530-GP; 97535-GO; 99285; A9270-GY; C1713; J0690; J1885; J2250; J2270; J2405; J2795; J3010; P9016